=== PATIENT | male | born 1940 | race Two or more races ===

== ENCOUNTER 2023-11-30 15:47 | Outpatient (CLI) | payer OTHER | END 2023-11-30 15:50 | disposition home or self-care (01) | LOC: SONOGRAMA 15:47 | PROVIDERS: ATTEND Pathology Anatomic Pathology & Clinical Pathology | DX: D44.0 Neoplasm of uncertain behavior of thyroid gland (principal); C83.39 Diffuse large B-cell lymphoma, extranodal and solid organ sites ==